=== PATIENT | female | born 1950 | race Caucasian/White ===

== ENCOUNTER 2017-02-19 09:43 | Emergency (ER) | payer MEDICARE ==
[2017-02-19 10:10] VITALS: BP 132/72; PULSE 66; TEMP 98.3; BMI 24.9
--- NOTE | 2017-02-19 11:36 | PDOC ---
History of Present Illness - General History Source: Patient, Spouse () Exam Limitations: No Limitations - History of Present Illness Initial Comments: 02/19/17 12:10 The patient is a 66 year old female with a significant PMH of HTN who presents to the emergency department with worsening right leg pain beginning approximately eight days ago. The patient describes that her right leg pain is localized from the right hip to the right knee and is worsened by knee flexion and walking. She reports difficulty walking secondary to her leg pain. The patient reports that she fainted eight days ago at work and hit her head. She reports being evaluated at [facility] and receiving a head CT scan. The patient states that she has had intermittent leg pain since then which suddenly worsened at 3AM this morning, prompting their visit. The patient denies taking any medication for the pain. The patient denies chest pain, shortness of breath, headache and dizziness. Denies fever, chills, nausea, vomit, diarrhea and constipation. Denies dysuria, frequency, urgency and hematuria. Allergies: NKA Past surgical history: None reported. Social history: No reported alcohol, drug, cigarette use. PCP: Dr. Lundberg <James Lind - Last Filed: 02/19/17 14:30> <Gayle Cueto - Last Filed: 02/19/17 15:05> - General Chief Complaint: Lightheaded Stated Complaint: RT LEG PAIN Time Seen by Provider: 02/19/17 11:36 Past History <James Lind - Last Filed: 02/19/17 14:30> - Past Medical History COPD: No HTN: Yes - Suicide/Smoking/Psychosocial Hx Smoking History: Never smoked Have you smoked in the past 12 months: No Information on smoking cessation initiated: No Hx Alcohol Use: No Drug/Substance Use Hx: No Substance Use Type: None <Gayle Cueto - Last Filed: 02/19/17 15:05> - Past Medical History Allergies/Adverse Reactions: Allergies Allergy/AdvReac Type Severity Reaction Status Date / Time No Known Allergies Allergy Verified 02/19/17 10:06 Review of Systems - Review of Systems Able to Perform ROS?: Yes Comments:: 02/19/17 12:10 GENERAL/CONSTITUTIONAL: No fever or chills. No weakness. HEAD, EYES, EARS, NOSE AND THROAT: No change in vision. No ear pain or discharge. No sore throat. CARDIOVASCULAR: No chest pain or shortness of breath. RESPIRATORY: No cough, wheezing, or hemoptysis. GASTROINTESTINAL: No nausea, vomiting, diarrhea or constipation. GENITOURINARY: No dysuria, frequency, or change in urination. MUSCULOSKELETAL: (+) Right leg pain. No neck or back pain. SKIN: No rash NEUROLOGIC: No headache, vertigo, loss of consciousness, or change in strength/ sensation. ENDOCRINE: No increased thirst. No abnormal weight change. HEMATOLOGIC/LYMPHATIC: No anemia, easy bleeding, or history of blood clots. ALLERGIC/IMMUNOLOGIC: No hives or skin allergy. <James Lind - Last Filed: 02/19/17 14:30> *Physical Exam - Vital Signs Last Vital Signs Temp Pulse Resp BP Pulse Ox 98.3 F 66 18 132/72 100 02/19/17 10:06 02/19/17 10:06 02/19/17 10:06 02/19/17 10:06 02/19/17 10:06 - Physical Exam Comments: 02/19/17 14:30 GENERAL: Awake, alert, and fully oriented, in no acute distress HEAD: No signs of trauma EYES: PERRLA, EOMI, sclera anicteric, conjunctiva clear ENT: Auricles normal inspection, hearing grossly normal, nares patent, oropharynx clear without exudates. Moist mucosa NECK: Normal ROM, supple, no lymphadenopathy, JVD, or masses LUNGS: Breath sounds equal, clear to auscultation bilaterally. No wheezes, and no crackles HEART: Regular rate and rhythm, normal S1 and S2, no murmurs, rubs or gallops ABDOMEN: Soft, nontender, normoactive bowel sounds. No guarding, no rebound. No masses EXTREMITIES: (+) Slight discomfort to internal and external rotation of the hip. Normal range of motion, no edema. No clubbing or cyanosis. No cords, erythema, or tenderness NEUROLOGICAL: Cranial nerves II through XII grossly intact. Normal speech. SKIN: Warm, Dry, normal turgor, no rashes or lesions noted. <James Lind - Last Filed: 02/19/17 14:30> - Vital Signs Last Vital Signs Temp Pulse Resp BP Pulse Ox 98.3 F 66 18 132/72 100 02/19/17 10:06 02/19/17 10:06 02/19/17 10:06 02/19/17 10:06 02/19/17 10:06 <Gayle Cueto - Last Filed: 02/19/17 15:05> Medical Decision Making - Medical Decision Making 02/19/17 14:34 Pt presents to the ED complaining of R leg pain after fall one week ago. Patient has been ambulatory since the fall, but the pain is made worse when she walks. Was seen at [facility] on the day of the fall, and discharged home after negative CT head. Worked last night, was experiencing pain but continuing to ambulate, then awoke today a 3 am with worsening pain. Xrays checked to rule out fracture and are negative. Pain improved after percoset and toradol. Will discharge home with PMD follow up. <Gayle Cueto - Last Filed: 02/19/17 15:05> *DC/Admit/Observation/Transfer - Attestations Scribe Attestion: 02/19/17 14:30 Documentation prepared by James Lind, acting as claim review medical director for Gayle Cueto MD. <James Lind - Last Filed: 02/19/17 14:30> - Discharge Dispostion Admit: No <Gayle Cueto - Last Filed: 02/19/17 15:05> Diagnosis at time of Disposition: Leg pain, right - Discharge Dispostion Disposition: HOME Condition at time of disposition: Good - Referrals Referrals: Ce Lundberg MD [Primary Care Provider] - - Patient Instructions Printed Discharge Instructions: DI for Leg Pain Additional Instructions: No hay fractura en las placas. Debe regressa al ED para dolor moon alejandrina que no puedes caminar, dolor con fiebre, simtomas nuevas or peor. Debes llamar a tu doctor primaria para vashti la manana. - Post Discharge Activity
[2017-02-19] MEDS ORDERED: ALBUTEROL SO4 2.5/IPRATROPIUM 0.5 INH SOL 3 ML VIAL.NEB. NEB ONE (12:45)
[2017-02-19] MEDS ORDERED: KETOROLAC TROMETHAMINE 60 MG/2 ML VIAL IM ONE (13:30)
[2017-02-19] MEDS ORDERED: KETOROLAC TROMETHAMINE 60 MG/2 ML VIAL ONE (14:16)
== END 2017-02-19 14:50 | disposition home or self-care (01) ==
LOC: JER 09:43
PROC: 3E0233Z Introduction of Anti-inflammatory into Muscle, Percutaneous Approach (ICD-10-PCS; principal; 2017-02-19)
DX: M79.604 Pain in right leg (principal)
CPT/HCPCS: 73523-TC; 73552-TC-RT; 73562-TC-RT; 96372; 99281-25